=== PATIENT | male | born 1960 | race Caucasian/White ===

== ENCOUNTER 2019-03-19 06:55 | Day surgery (SDC) | payer OTHER ==
[~2019-03-19] VITALS: Ht 172.7 cm; Wt 83.9 kg
[~2019-03-19 06:55] MED LIST: GLUCOSA-CHOND-1 EACH PO; LISINOPRIL10 MG PO
--- NOTE | 2019-03-19 09:33 | NUR ---
03/19/19 0933 Brian,Anita 0913 PT ARRIVED TO PACU WITH ORAL AIRWAY IN PLACE, RESP EVEN AND UNLABORED. PT BEGINS TO OPEN EYES AND ABLE TO FOLLOW COMMANDS TO OPEN MOUTH AND ORAL AIRWAY REMOVED BY OIL RIG DRILLER. PT REORIENTED TO PACU. 914 O2 DECREASED TO 6L VIA MASK. 916 PT WOKE TO TACTIELS STIMULI AND REPORTS PAIN 5/10 AND PAIN MEDICATION GIVEN BY OIL RIG DRILLER. 919 PT ALSEEP AND SNORING NOTED. PERIOD OF APNEA NOTED AND RN ENCOURGED DEEP BREATHING. 924 PT WOKE TO VERBAL STIMULI AND REPORTS PAIN 4/10 AND "COULD BE BETTER." PT THEN BACK TO SLEEP AND SNORING NOTED, NO GRAMCING OR MOANING NOTED. 928 PT ASLEEP AND O2 SAT DECREASED TO 91% WHILE ASLEEP.
--- NOTE | 2019-03-19 10:08 | NUR ---
PT ARRIVES TO DS RM 4 FROM RECOVERY AWAKE AND ALERT. PT HAS PAIN IN ABD ON ARRIVAL, RATES 8/10; PT MEDICATED SEE EMAR. CONT PULSE OX LEFT IN PLACE. PT ABLE TO MAINTAIN SATS ABOVE 94%. PT DENIES NAUSEA. SCD'S IN PLACE, CALL LIGHT TO PT LEFT. PT FAMILY AT BEDSIDE. PT PROVIDED ICED WATER AND CRACKERS.
[2019-03-19] MEDS ORDERED: NORCO 5-325 TA1 EACH PO (10:42)
--- NOTE | 2019-03-19 10:52 | NUR ---
PT RESTING IN BED WATCHING TV WITH FAMILY AT BEDSIDE. PT RESP EVEN AN UNLABORED, SATS ABOVE 94% WITH CONT PULSE OX IN PLACE. PT DENIES NAUSEA BUT STATES PAIN 7/10 IN ABD. PT ENCOURAGED TO BRACE ABD WITH PILLOW WHEN COUGHING TO HELP WITH PAIN. DC CRITERIA EXPLAINED TO PT, PT AGREES TO USE CALL LIGHT WITH URGE TO VOID.
--- NOTE | 2019-03-20 08:23 | OR ---
[facility] [address] [place], [place] [address] Signed DATE OF OPERATION: 03/19/2019 SURGEON: Renetta Artis MD PREOPERATIVE DIAGNOSIS: Incarcerated 12 mm umbilical hernia. POSTOPERATIVE DIAGNOSIS: Incarcerated 12 mm umbilical hernia. PROCEDURE: Primary umbilical herniorrhaphy with intraabdominal Ventralex mesh (6.4 cm). ESTIMATED BLOOD LOSS: None. INDICATIONS: Raudel is a 58-year-old gentleman who had moved from [place] to be with his and family. He took a job at our local [employer]. It is very heavy laborious work. He said he has had an umbilical hernia probably 5-10 years. He said at his new job, it has become quite miserable. He used to be able to push the hernia back inside. Now, it is stuck and incarcerated. He said it is quite painful and he has had to go home at least twice from work. He went to his primary care provider who asked him to come see me with respect to the above. I met with him in the office and sure enough we could not reduce his hernia. I gave him a [employer] brochure on hernias. We looked at that together in detail. He understands the nature of umbilical hernia. He understands the difference between a primary suture repair and a mesh repair. We reviewed the expected intraop and postop course. He does understand the risks including, but not limited to bleeding, infection, scarring, change in contour of the skin, damage to bowel, infection of mesh requiring removal, recurrent hernias and chronic pain. He expressed understanding and would like to proceed. DESCRIPTION OF PROCEDURE: I met with Uriel in the preop area. We both agreed and marked his umbilical hernia. After this, he was taken into the operating room and placed in a supine position under general endotracheal tube anesthesia. He was given preoperative antibiotics along with subcutaneous heparin. SCDs were utilized. He was then prepped and draped in the usual sterile fashion. After this, a standard transverse infraumbilical incision was made, carried down around the umbilicus bluntly and with the help of the cautery. The umbilical hernia sac was from the fascia with the help of the cautery and then Electronically Signed By: RENETTA ARTIS MD 03/20/19 0823 PATIENT NAME: RAUDEL COTTO OPERATIVE REPORT DATE OF : 60 REPORT #: [id number] PHYSICIAN: RENETTA ARTIS MD PCP: CATHI CAMPBELL MD REPORT IS CONFIDENTIAL AND NOT TO BE RELEASED WITHOUT AUTHORIZATION [facility] [address] [place], [place] [address] Signed passed off the field. He had 12, maybe 15 mm fascial defect. Consequently, we chose our 6.4 cm round Ventralex mesh and we placed that in the abdominal cavity and brought it up, flushed against the posterior abdominal wall. The fascial defect was closed transversely with a running #1 Prolene suture. Several passes of the suture went through the tab on the mesh to help hold it in place. The tab on the mesh was then trimmed down to the level of the fascia and discarded. Local anesthetic was copiously injected into the operative field. The wound was irrigated and suctioned out until clear. The umbilical skin was held down to the midline fascia with interrupted 2-0 PDS suture. The skin and dermis were then closed with interrupted 3-0 subcuticular Monocryl sutures. Dry gauze and tape were then applied. Uriel was then awakened from his anesthesia, extubated in the OR, and taken to recovery room in stable condition. Renetta Artis MD ALB/MODL /[id number] cc: Cathi Campbell MD Copies: ~ Electronically Signed By: RENETTA ARTIS MD 03/20/19 0823 PATIENT NAME: RAUDEL COTTO OPERATIVE REPORT DATE OF : 60 REPORT #: [id number] PHYSICIAN: RENETTA ARTIS MD PCP: CATHI CAMPBELL MD REPORT IS CONFIDENTIAL AND NOT TO BE RELEASED WITHOUT AUTHORIZATION
== END 2019-03-19 12:00 | disposition home or self-care (01) ==
LOC: DS 06:55
PROVIDERS: Colon & Rectal Surgery
PROC: 0WUF0JZ Supplement Abdominal Wall with Synthetic Substitute, Open Approach (ICD-10-PCS; principal; 2019-03-19 08:00)
DX: K42.0 Umbilical hernia with obstruction, without gangrene (principal); I10 Essential (primary) hypertension; M19.90 Unspecified osteoarthritis, unspecified site; F17.210 Nicotine dependence, cigarettes, uncomplicated; Z79.899 Other long term (current) drug therapy; Z86.73 Personal history of transient ischemic attack (TIA), and cerebral infarction without residual deficits
CPT/HCPCS: 00750; C1781; J0690; J1100; J1170; J1644; J1885; J2250; J2405; J2704; J3010; J7120

== ENCOUNTER 2020-09-23 18:51 | Emergency (ER) | payer OTHER ==
[~2020-09-23] VITALS: Ht 172.7 cm; Wt 83.9 kg
[~2020-09-23 18:51] MED LIST changes: +NORCO 5-325 TA1 EACH PO
== END 2020-09-24 | disposition home or self-care (01) ==
LOC: ED 18:51
DX: S00.211A Abrasion of right eyelid and periocular area, initial encounter (principal); S00.81XA Abrasion of other part of head, initial encounter; F10.129 Alcohol abuse with intoxication, unspecified; Y90.8 Blood alcohol level of 240 mg/100 ml or more; Z79.899 Other long term (current) drug therapy
CPT/HCPCS: 70450; 70486; 72125; 80053; 85025; 99284-25; G0480

== ENCOUNTER 2023-02-22 11:08 | Emergency (ER) | payer OTHER ==
[~2023-02-22] VITALS: Ht 175.3 cm; Wt 74.8 kg
[2023-02-22] MEDS ORDERED: FLUOXETINE HCL10 MG PO (11:54)
[2023-02-22] MEDS ORDERED: ATORVASTATIN CA40 MG PO (11:54)
[2023-02-22] MEDS ORDERED: ATIVAN1 MG PO (15:45)
== END 2023-02-22 16:07 | disposition home or self-care (01) ==
LOC: ED 11:08
DX: F10.239 Alcohol dependence with withdrawal, unspecified (principal); I10 Essential (primary) hypertension; Z79.899 Other long term (current) drug therapy
CPT/HCPCS: 36415; 80053; 85025; 96365; 96366; 96375; 99284-25; J2060; J3411

== ENCOUNTER 2023-09-30 00:57 | Emergency (ER) | payer OTHER ==
[~2023-09-30] VITALS: Ht 175.3 cm; Wt 74.8 kg
[~2023-09-30 00:57] MED LIST changes: +ATIVAN1 MG PO; +ATORVASTATIN CA40 MG PO; +FLUOXETINE HCL10 MG PO
[2023-09-30 01:10] LABS: BASOPHILS 0.7 % (0-2); HEMATOCRIT 38.4 % (35.0-50.0); HEMOGLOBIN 12.7 g/dL (12.0-18.0); LYMPHOCYTES 30.7 % (24-44); MCH 32.1 (27-36); MCHC 33.2 g/dl (30-36); MCV 96.8 fl (81-99); MONOCYTES 11.8 % (0-12); NEUTROPHILS 53.8 % (39-80); PLATELET COUNT 265 K/uL (140-440); RBC 3.97 M/ul (4.3-5.7); RDW 13.8 (10.5-15.0)
[2023-09-30 01:23] LABS: INR 0.97 (0.80-1.30); PROTIME 12.4 Sec (11.2-14.2)
[2023-09-30 01:33] LABS: ALBUMIN 3.8 g/dL (3.4-5.0); ALBUMIN/GLOBULIN RATIO 1.12 (1.1-2.4); ANION GAP 17.9 (7-21); BILIRUBIN, TOTAL 0.3 ng/dL (0.2-1.0); BUN/CREATININE RATIO 21.51 (6.0-28.6); CALCIUM 8.5 mg/dL (8.5-10.1); CREATININE, SERUM 0.79 mg/dL (0.70-1.30); POTASSIUM 3.9 mmol/L (3.5-5.1); PROTEIN, TOTAL 7.2 g/dL (6.4-8.2)
[2023-09-30] MEDS ORDERED: DIFLUCAN100 MG PO (01:56)
[2023-09-30 02:56] VITALS: BP 99/66
--- NOTE | 2023-09-30 06:57 | EKG ---
[facility] [address] [place] [facility] [place] [address] Signed Normal sinus rhythm Left axis deviation Right bundle branch block Anteroseptal infarct , age undetermined T wave abnormality, consider lateral ischemia Abnormal ECG When compared with ECG of 09-MAR-2019 08:49, Anteroseptal infarct is now present T wave inversion more evident in Anterior leads Confirmed by EMMETT BARRETT MD ([id number]) on 09/30/2023 6:57:13 AM Electronically Signed By: EMMETT BARRETT 09/30/23 0657 PATIENT NAME: YADIELCOLIN Electrocardiogram DATE OF : 60 PHYSICIAN: EMMETT BARRETT REPORT #: [id number] REPORT IS CONFIDENTIAL AND NOT TO BE RELEASED WITHOUT AUTHORIZATION
== END 2023-09-30 03:01 | disposition home or self-care (01) ==
LOC: ED 00:57
PROVIDERS: Family Medicine
DX: R07.89 Other chest pain (principal); I10 Essential (primary) hypertension; Z79.899 Other long term (current) drug therapy
CPT/HCPCS: 36415; 71045; 80053; 83735; 84484; 85025; 85379; 85610; 93005; 93010

== ENCOUNTER 2023-10-06 20:15 | Emergency (ER) | payer OTHER ==
[~2023-10-06] VITALS: Ht 175.3 cm; Wt 75.0 kg
[~2023-10-06 20:15] MED LIST changes: +DIFLUCAN100 MG PO
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
[2023-10-06 20:41] LABS: BASOPHILS 0.8 % (0-2); EOSINOPHILS 1.1 % (0-6); HEMOGLOBIN 12.8 g/dL (12.0-18.0); LYMPHOCYTES 26.4 % (24-44); MCH 32.1 (27-36); MCHC 32.7 g/dl (30-36); MCV 97.9 fl (81-99); MONOCYTES 8.2 % (0-12); NEUTROPHILS 63.5 % (39-80); PLATELET COUNT 221 K/uL (140-440); RBC 3.98 M/ul (4.3-5.7); RDW 13.9 (10.5-15.0)
[2023-10-06 20:56] LABS: ALBUMIN 3.9 g/dL (3.4-5.0); ALBUMIN/GLOBULIN RATIO 1.26 (1.1-2.4); ANION GAP 15.5 (7-21); BILIRUBIN, TOTAL 0.3 ng/dL (0.2-1.0); BUN/CREATININE RATIO 17.85 (6.0-28.6); CALCIUM 8.5 mg/dL (8.5-10.1); CREATININE, SERUM 0.84 mg/dL (0.70-1.30); POTASSIUM 3.5 mmol/L (3.5-5.1)
[2023-10-07 03:50] VITALS: BP 114/78
== END 2023-10-07 03:50 | disposition home or self-care (01) ==
LOC: ED 20:15
PROVIDERS: Internal Medicine
DX: S00.83XA Contusion of other part of head, initial encounter (principal); S60.221A Contusion of right hand, initial encounter; F10.129 Alcohol abuse with intoxication, unspecified; I10 Essential (primary) hypertension; Y04.2XXA Assault by strike against or bumped into by another person, initial encounter; Z86.73 Personal history of transient ischemic attack (TIA), and cerebral infarction without residual deficits; Z79.899 Other long term (current) drug therapy
CPT/HCPCS: 36415; 70450; 70486; 72125; 73130; 80053; 80307; 83690; 83735; 85025; 90715; G0480; J3411; J7030

== ENCOUNTER 2023-11-14 07:36 | Emergency (ER) | payer OTHER ==
[~2023-11-14] VITALS: Ht 175.3 cm; Wt 74.8 kg
[~2023-11-14 07:36] MED LIST changes: +LOMOTIL TABLET1 EACH PO
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
[2023-11-14 10:08] VITALS: BP 117/78
== END 2023-11-14 10:00 | disposition home or self-care (01) ==
LOC: ED 07:36
DX: K52.9 Noninfective gastroenteritis and colitis, unspecified (principal); I10 Essential (primary) hypertension; Z86.73 Personal history of transient ischemic attack (TIA), and cerebral infarction without residual deficits; Z79.899 Other long term (current) drug therapy; Z59.01 Sheltered homelessness
CPT/HCPCS: 99284; A9270